=== PATIENT | female | born 1950 | race Caucasian/White ===

== ENCOUNTER 2022-03-26 09:30 | Outpatient (REF) | payer MEDICARE, OTHER, SELFPAY ==
[2022-03-26 11:03] LABS: T4 Thyroxine 8.2 ug/dL (4.5-12.0)
[2022-03-26 11:08] LABS: Erythrocyte Sedimentation Rate 23 MM/HR (0-20)
[2022-03-26 11:21] LABS: Folate 8.5 ng/mL (> or = 4.0); Vitamin B12 530 pg/mL (200-900)
[2022-03-28 01:07] LABS: Lyme Abs Screen <0.90 index
[2022-03-29 22:12] LABS: IgA 262 mg/dL (70-320); IgG 1471 mg/dL (600-1540); IgM 164 mg/dL (50-300)
== END 2022-03-26 09:31 | disposition home or self-care (01) ==
LOC: HO.LAB 09:30
PROVIDERS: PCP Internal Medicine; Visit Provider Psychiatry & Neurology Neurology
DX: G62.9 Polyneuropathy, unspecified (principal)
CPT/HCPCS: 36415; 82607; 82746; 82784; 84436; 85652; 86334; 86617; 86618